=== PATIENT | female | born 1960 | race Two or more races ===

== ENCOUNTER → 2018-08-24 | Day surgery (SDC) | payer OTHER ==
[~2018-08-24] MED LIST: LIDOCAINE 1%/EPINEPHRINE INJ 20 ML VIAL ONE; LIDOCAINE 2% INJ (20 MG/ML) 20 ML MDV ONE
--- NOTE | 2018-08-28 14:12 | RADIOLOGY REPORT (SQ) ---
EXAM DESCRIPTION: STEREO BREAST BX; LEFT DIG DX MAMMO NO CHG COMPLETED DATE/TIME: 08/24/2018 1:12 pm; 08/24/2018 1:13 pm REASON FOR STUDY: ABN OR INCONCLUSIVE FINDINGS ON DX IMAGING OF BREAST (R92.8) R92.8 OTH ABN AND IN CONCLUSIVE FINDINGS ON DX IMAGING OF [place] COMPARISON: Mammograms from 2008 TECHNIQUE: Vacuum-assisted stereotactic-guided biopsy of the lesion in the left breast. Serial progr ess stereotactic and single digital images acquired. PROCEDURE: The procedure was discussed with the patient, including possible complications such as bleeding, infection, nondiagnostic sample or possible findings such as atypical ductal hyperplasia wh ich would require additional surgery. Possible clip placement was explained. The patient agreed t o the procedure. The patient was placed prone on the stereotactic table. The lesion in the breast was localized ster eotactically. The skin of the breast was prepped in sterile fashion. Superficial and deep local an esthesia was provided. A small incision was made in the skin and the biopsy probe was advanced to t he target. Using the vacuum-assisted core biopsy device, multiple core specimens were obtained. Continuous low dose infusion of local anesthesia was used during the procedure. A specimen radiograph was obtained. The radiograph demonstrated calcifications of concern in the bio psy tissue. Using luspruhe-[id number] technique a pellet clip was deployed at the biopsy site. Mammographic image confirmed presence of the clip. The probe was then removed and hemostasis obtained with manua l compression. A compression bandage was applied. Postoperative instructions were explained to th e patient. POST-PROCEDURE TWO VIEW DIGITAL MAMMOGRAM: An additional two view mammogram was recorded in the [facility] mammographic suite. Marker clip is present at the biopsy site. LIMITATIONS: None. 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 POST PROCEDURE MAMMOGRAMS FOR MARKER PLACEMENT: Yes IMPRESSION: SUCCESSFUL STEREOTACTIC-GUIDED BIOPSY OF THE LESION IN THE LEFT BREAST. BIOPSY RESULTS ARE CONCORDANT WITH IMAGING FINDINGS. BI-RADS 6, known malignancy. Appropriate action should be harsh en. FOLLOW-UP: APPROPRIATE FOLLOWUP FOR BIOPSY RESULTS OF MALIGNANCY.BI-RADS 6, known malignancy. Approp riate action should be taken. NOTIFICATION: These results were discussed with the patient, 1000 hours 08/25/2018. She understands t his is a malignant diagnosis and will require further follow-up. COMMENT: Patient medication list reviewed: Yes- Quality ID# [id number]:Eligible professional attests to doc umenting in the medical record they obtained, updated, or reviewed the patient's current medications. TECHNICAL DOCUMENTATION: JOB ID: [id number] [facility]- All Rights Reserved Reading location - IP/workstation name: [facility]
== END ==
LOC: RAD 08:36
PROVIDERS: ATTEND Family Medicine
DX: D05.12 Intraductal carcinoma in situ of left breast (principal)
CPT/HCPCS: 88305 ×2; 88342; 19081; J3490 ×2

== ENCOUNTER 2018-10-19 10:15 | Day surgery (SDC) | payer OTHER ==
[2018-10-16 10:18] LABS: ABSOLUTE BASOPHILS # (AUTO) 0.1 10^3/uL (0.0-0.2); ABSOLUTE EOSINOPHILS # (AUTO) 0.1 10^3/uL (0.0-0.6); ABSOLUTE LYMPHOCYTES (AUTO) 2.3 10^3/uL (0.5-4.7); ABSOLUTE MONOCYTES (AUTO) 0.4 10^3/uL (0.1-1.4); ABSOLUTE NEUT (AUTO) 3.4 10^3/uL (1.7-8.2); BASOPHILS % (AUTO) 0.8 % (0-2); EOSINOPHILS % (AUTO) 1.3 % (0-6); HEMATOCRIT 41.8 % (36.0-47.0); HEMOGLOBIN 13.6 g/dL (12.0-15.5); LYMPHOCYTES % (AUTO) 37.1 % (13-45); MEAN CORPUSCULAR HEMOGLOBIN 27.3 pg (27.0-33.4); MEAN CORPUSCULAR HGB CONC 32.6 g/dL (32.0-36.0); MEAN CORPUSCULAR VOLUME 84 fl (80-97); PLATELET COUNT 196 10^3/uL (150-450); RED CELL DISTRIBUTION WIDTH 14.5 % (11.5-14.0); SEGMENTED NEUTROPHILS % (AUTO) 54.8 % (42-78); TOTAL CELLS COUNTED % (AUTO) 100 %; WHITE BLOOD COUNT 6.2 10^3/uL (4.0-10.5)
[2018-10-16 10:39] LABS: ANION GAP 6 (5-19); BLOOD UREA NITROGEN 14 mg/dL (7-20); CALCIUM 9.3 mg/dL (8.4-10.2); CARBON DIOXIDE 29 mmol/L (22-30); CHLORIDE 107 mmol/L (98-107); GLUCOSE 113 mg/dL (75-110); POTASSIUM 4.6 mmol/L (3.6-5.0); SODIUM 142.4 mmol/L (137-145)
--- NOTE | 2018-10-16 16:36 | EKG REPORT ---
SEVERITY:- NORMAL ECG - SINUS RHYTHM : Confirmed by: Rosenda Morrow MD 16-Oct-2018 16:35:12
[~2018-10-19 10:15] MED LIST changes: +ACETAMINOPHEN 1,000 MG/100 ML RTUPB IV ONE; +BUPIVACAINE HCL 0.25% /EPINEPHRINE INJ/PF 30 ML SDV ONE; +CEFAZOLIN 1 GM/D5W RTU 1 GM/50 ML RTUPB IV PRN; +DEXAMETHASONE SOD PHOSPHATE INJ 4 MG/1 ML VIAL ONE; +FENTANYL CITRATE INJ/PF 100 MCG/2 ML AMPUL ONE; +HYDROMORPHONE HCL INJ/PF 2 MG/ML AMPULE ONE; +KETOROLAC TROMETHAMINE 60 MG/2 ML SDV ONE; +LACTATED RINGERS 1000 ML IV PRN; +LIDOCAINE 0.5% INJ-PF (5 MG/ML) 50 ML SDV SUBCUT PRN; +LIDOCAINE 1% INJ-PF (10 MG/ML) 30 ML SDV ONE; -LIDOCAINE 1%/EPINEPHRINE INJ 20 ML VIAL ONE; -LIDOCAINE 2% INJ (20 MG/ML) 20 ML MDV ONE; +MIDAZOLAM 2 MG/2 ML INJ ONE; +ONDANSETRON HCL INJ/PF 4 MG/2 ML SDV ONE; +PROPOFOL INJ 200 MG/20 ML VIAL IV ONE
[2018-10-19] MEDS ORDERED: CEFAZOLIN 1 GM/D5W RTU 1 GM/50 ML RTUPB IV ONE (11:48)
[2018-10-19] MEDS ORDERED: MIDAZOLAM 2 MG/2 ML INJ ONE (11:50)
[2018-10-19] MEDS ORDERED: DIPHENHYDRAMINE HCL 50 MG/ML VIAL IV PRN (12:48)
[2018-10-19] MEDS ORDERED: FENTANYL CITRATE INJ/PF 100 MCG/2 ML AMPUL IV PRN ×3 (12:48)
[2018-10-19] MEDS ORDERED: MORPHINE SULFATE 10 MG/ML INJ IV PRN (12:48)
[2018-10-19] MEDS ORDERED: PROMETHAZINE HCL INJ 25 MG/1 ML VIAL IV PRN (12:48)
[2018-10-19] MEDS ORDERED: MEPERIDINE HCL/PF INJ 25 MG/1 ML DISP.SYRIN IV PRN (12:48)
[2018-10-19] MEDS ORDERED: FENTANYL CITRATE INJ/PF 100 MCG/2 ML AMPUL ONE (13:54)
--- NOTE | 2018-10-19 14:23 | Discharge Summary ---
Discharge Summary (SDC) - Discharge Final Diagnosis: breast mass Date of Surgery: 10/19/18 Condition: Good Treatment or Instructions: leave shilo wrap on till tomorrow ok to remove dressing tuesday morning ok to shower on tuesday remove the outer gauze on tuesday and leave on the steristrips no physical activity for 2wks needs to f/u with me in 7-10 days. Prescriptions: Tramadol HCl [Ultram 50 mg Tablet] 50 mg PO ASDIR PRN #20 tablet PRN Reason: Referrals: ANGEL LARIOS MD [Primary Care Provider] - Discharge Diet: As Tolerated Respiratory Treatments at Home: Deep Breathing/Coughing Discharge Activity: Activity As Tolerated Home Care Assistance: None Needed Report the Following to Your Physician Immediately: Shortness of Breath, Swelling, Warmth, Increased Soreness
--- NOTE | 2018-10-19 14:49 | Operative Report ---
Operative Report DATE OF SURGERY: 10/19/18 Operative Report: Patient brought to the operating room in awake alert stable condition on the operating table supine position and induced under general anesthesia and intubated Breast was prepped and draped in usual sterile manner for the procedure she had a previous wire localization within the left breast. Curved incision was made in the left upper outer quadrant dissection carried down through subcutaneous tissue with Bovie cautery the breast tissue was encountered and incision was made in the breast tissue of the left upper outer quadrant mass itself was grasped with a Allis clamp and traction circumferentially came around the breast tissue with Bovie cautery and center of the breast mass the tip of the wire was located. The mass was excised x-rayed and confirmed the appropriate specimen. Wound was irrigated with normal saline hemostasis was obtained with Bovie cautery and was then reapproximated with intracuticular 4-0 Rapide suture sterile dressing was applied which completed the procedure. The patient was then awakened in the operating room extubated transferred recovery in stable condition Estimated blood loss approximately 25 cc Sponge and needle counts were correct x2 Specimen removed was left breast biopsy specimen PREOPERATIVE DIAGNOSIS: left breast mass POSTOPERATIVE DIAGNOSIS: left breast mass OPERATION: needle localization biopsy left breast SURGEON: KHADAR FOWLER 1ST COMPOSITE SCIENCE TEACHER: blade ANESTHESIA: GA TISSUE REMOVED OR ALTERED: left breast mass COMPLICATIONS: none ESTIMATED BLOOD LOSS: 25cc
[2018-10-19] MEDS ORDERED: TRAMADOL HCL 50 MG TABLET ONE (15:00)
[2018-10-19 18:31] VITALS: BP 145/100
--- NOTE | 2018-10-23 13:58 | WOMENS IMAGING REPORT ---
EXAM DESCRIPTION: WIRE LOC MAMMO; LEFT DIAGNOSTIC MAMMO W/CAD; BREAST SPECIMEN COMPLETED DATE/TIME: 10/19/2018 11:32 am; 10/19/2018 2:00 pm REASON FOR STUDY: C50.912 MALIGNANT NEOPLASM OF UNSPECIFIED SITE OF LEFT FEMALE BREAST; PRE NEEDLE L OCALIZATION PER DR MONGE; LEFT BREAST SPECIMEN IN OR C50.912 MALIGNANT NEOPLASM OF UNSPECIFIED SI TE OF LEFT FEMAL COMPARISON: Stereotactic biopsy 08/24/2018 TECHNIQUE: Prior to the needle and localization, two-view mammogram was obtained to document clip lo calization and extent of residual calcification in the left breast at the biopsy site. Few punctate calcifications immediately adjacent to the stereotactic marker are noted on these pre-procedure films . The stereotactic biopsy clip in the 2 o'clock position left breast was localized mammographically us ing a grid marker. The skin of the breast was prepped in sterile fashion and local anesthesia was pr ovided. The localization needle was advanced to the target. The tip was positioned adjacent to the target and confirmed with two orthogonal views. Surgical dye was not injected for this procedure. Th e wire was placed through the needle and the hook engaged. Post procedure mammogram demonstrates sati sfactory position of the needle and wire. Specimen radiograph demonstrates the intact localization wire as well as the targeted lesion within t he biopsy specimen. LIMITATIONS: None. FINDINGS: Procedure as above. Pathology: Pending. IMPRESSION: SUCCESSFUL NEEDLE LOCALIZATION OF THE LESION IN THE LEFT BREAST. FOLLOW-UP PER THE P YAHIR'S SURGEON. TECHNICAL DOCUMENTATION: JOB ID: [id number] [employer]- All Rights Reserved Reading location - IP/workstation name: [facility]-RR
--- NOTE | 2018-10-23 13:58 | WOMENS IMAGING REPORT ---
EXAM DESCRIPTION: WIRE LOC MAMMO; LEFT DIAGNOSTIC MAMMO W/CAD; BREAST SPECIMEN COMPLETED DATE/TIME: 10/19/2018 11:32 am; 10/19/2018 2:00 pm REASON FOR STUDY: C50.912 MALIGNANT NEOPLASM OF UNSPECIFIED SITE OF LEFT FEMALE BREAST; PRE NEEDLE L OCALIZATION PER DR MONGE; LEFT BREAST SPECIMEN IN OR C50.912 MALIGNANT NEOPLASM OF UNSPECIFIED SI TE OF LEFT FEMAL COMPARISON: Stereotactic biopsy 08/24/2018 TECHNIQUE: Prior to the needle and localization, two-view mammogram was obtained to document clip lo calization and extent of residual calcification in the left breast at the biopsy site. Few punctate calcifications immediately adjacent to the stereotactic marker are noted on these pre-procedure films . The stereotactic biopsy clip in the 2 o'clock position left breast was localized mammographically us ing a grid marker. The skin of the breast was prepped in sterile fashion and local anesthesia was pr ovided. The localization needle was advanced to the target. The tip was positioned adjacent to the target and confirmed with two orthogonal views. Surgical dye was not injected for this procedure. Th e wire was placed through the needle and the hook engaged. Post procedure mammogram demonstrates sati sfactory position of the needle and wire. Specimen radiograph demonstrates the intact localization wire as well as the targeted lesion within t he biopsy specimen. LIMITATIONS: None. FINDINGS: Procedure as above. Pathology: Pending. IMPRESSION: SUCCESSFUL NEEDLE LOCALIZATION OF THE LESION IN THE LEFT BREAST. FOLLOW-UP PER THE P YAHIR'S SURGEON. TECHNICAL DOCUMENTATION: JOB ID: [id number] [employer]- All Rights Reserved Reading location - IP/workstation name: [email or web address]
== END 2018-10-19 16:00 | disposition home or self-care (01) ==
LOC: OROUT 10:15
PROVIDERS: ATTEND Surgery
DX: D05.12 Intraductal carcinoma in situ of left breast (principal); I10 Essential (primary) hypertension; F32.9 Major depressive disorder, single episode, unspecified; G47.00 Insomnia, unspecified; F43.10 Post-traumatic stress disorder, unspecified; Z79.899 Other long term (current) drug therapy
CPT/HCPCS: 93010; 93005; 36415; 85025; 80048; 88307 ×2; 19281; 77065; 76098; 19301; J2250; J3490 ×2; J0690; J1100; J1885; J3010; J2405; J2704; J0131; 400; J1170

== ENCOUNTER 2018-11-03 09:40 | Emergency (ER) | payer OTHER ==
--- NOTE | 2018-11-03 10:15 | RADIOLOGY REPORT (SQ) ---
EXAM DESCRIPTION: CHEST 2 VIEWS COMPLETED DATE/TIME: 11/03/2018 10:03 am REASON FOR STUDY: short of breath COMPARISON: None. EXAM PARAMETERS: NUMBER OF VIEWS: two views TECHNIQUE: Digital Frontal and Lateral radiographic views of the chest acquired. RADIATION DOSE: NA LIMITATIONS: none FINDINGS: LUNGS AND PLEURA: No opacities, masses or pneumothorax. No pleural effusion. MEDIASTINUM AND HILAR STRUCTURES: No masses or contour abnormalities. HEART AND VASCULAR STRUCTURES: Heart normal size. No evidence for failure. BONES: No acute findings. HARDWARE: None in the chest. OTHER: No other significant finding. IMPRESSION: NO ACUTE RADIOGRAPHIC FINDING IN THE CHEST. TECHNICAL DOCUMENTATION: JOB ID: [id number] [employer]- All Rights Reserved Reading location - IP/workstation name: [email or web address]
[2018-11-03 11:10] LABS: ABSOLUTE BASOPHILS # (AUTO) 0.1 10^3/uL (0.0-0.2); ABSOLUTE EOSINOPHILS # (AUTO) 0.1 10^3/uL (0.0-0.6); ABSOLUTE LYMPHOCYTES (AUTO) 2.4 10^3/uL (0.5-4.7); ABSOLUTE MONOCYTES (AUTO) 0.5 10^3/uL (0.1-1.4); ABSOLUTE NEUT (AUTO) 5.6 10^3/uL (1.7-8.2); BASOPHILS % (AUTO) 1.4 % (0-2); EOSINOPHILS % (AUTO) 0.7 % (0-6); HEMATOCRIT 38.1 % (36.0-47.0); HEMOGLOBIN 12.6 g/dL (12.0-15.5); LYMPHOCYTES % (AUTO) 27.8 % (13-45); MEAN CORPUSCULAR HEMOGLOBIN 27.4 pg (27.0-33.4); MEAN CORPUSCULAR HGB CONC 33.1 g/dL (32.0-36.0); MEAN CORPUSCULAR VOLUME 83 fl (80-97); MONOCYTES % (AUTO) 5.8 % (3-13); PLATELET COUNT 259 10^3/uL (150-450); RED CELL DISTRIBUTION WIDTH 14.6 % (11.5-14.0); SEGMENTED NEUTROPHILS % (AUTO) 64.3 % (42-78); TOTAL CELLS COUNTED % (AUTO) 100 %; WHITE BLOOD COUNT 8.6 10^3/uL (4.0-10.5)
--- NOTE | 2018-11-03 11:11 | RADIOLOGY REPORT (SQ) ---
EXAM DESCRIPTION: SOFT TISSUE NECK COMPLETED DATE/TIME: 11/03/2018 10:53 am REASON FOR STUDY: Sore throat and painful swallowing COMPARISON: None. NUMBER OF VIEWS: Two views. TECHNIQUE: AP and lateral radiographic image of the soft tissues of the neck. LIMITATIONS: None. FINDINGS: EPIGLOTTIS: Normal. Contour normal. Aryepiglottic folds normal. PREVERTEBRAL SOFT TISSUES: Normal. No soft tissue swelling. SUBGLOTTIC AREA: Normal. No narrowing. RETROPHARYNGEAL SPACE: Normal. No soft tissue masses. BONES: Mild anterior osteophyte formation throughout the cervical spine LUNG APICES: Normal. OTHER: No radiopaque foreign body. No other significant finding. IMPRESSION: NEGATIVE STUDY OF THE SOFT TISSUES OF THE NECK. TECHNICAL DOCUMENTATION: JOB ID: [id number] [employer]- All Rights Reserved Reading location - IP/workstation name: [email or web address]
[2018-11-03 11:26] LABS: A TYPE INFLUENZA AG NEGATIVE (NEGATIVE); B INFLUENZA AG NEGATIVE (NEGATIVE)
[2018-11-03 11:27] LABS: ALANINE AMINOTRANSFERASE 23 U/L (9-52); ALBUMIN 4.5 g/dL (3.5-5.0); ALKALINE PHOSPHATASE 78 U/L (38-126); ANION GAP 8 (5-19); ASPARTATE AMINO TRANSFERASE 22 U/L (14-36); BILIRUBIN,DIRECT 0.3 mg/dL (0.0-0.4); BILIRUBIN,TOTAL 0.5 mg/dL (0.2-1.3); BLOOD UREA NITROGEN 7 mg/dL (7-20); CALCIUM 9.6 mg/dL (8.4-10.2); CARBON DIOXIDE 27 mmol/L (22-30); CHLORIDE 106 mmol/L (98-107); GLUCOSE 122 mg/dL (75-110); LIPASE 23.1 U/L (23-300); SODIUM 141.1 mmol/L (137-145); TOTAL PROTEIN 7.8 g/dL (6.3-8.2)
--- NOTE | 2018-11-03 13:56 | ER Document Report ---
ED General - General Chief Complaint: Respiratory Distress Stated Complaint: FLU SYMPTOMS Time Seen by Provider: 11/03/18 10:17 Notes: Patient says that she has been sick with a sore throat for the past 4-5 days. She was seen earlier in the week at the ID and then again yesterday at the [facility] clinic. She was advised to follow-up here because of continuing symptoms of sore throat. She says it is so painful she can hardly swallow. Does not have any problem with breathing. No hoarse voice. Patient has previously been prescribed Diflucan for yeast infection both in the pelvic region and in her throat. Patient states she has had some cough and congestion last night. Also some difficulty breathing. Not sure if she has had a fever but has felt hot and cold. Did not get the flu vaccination this year. Patient incidentally comments about a rash she has had on the mid right lower leg that has been present for 3-4 months. She is been given antibiotics as well as some creams for it as well as Lamisil. She says none of those have worked and she is supposed to being referred to a fixing machine operator. TRAVEL OUTSIDE OF THE [place] IN LAST 30 DAYS: No - Related Data Allergies/Adverse Reactions: No Known Allergies Allergy (Verified 11/03/18 09:44) Past Medical History - Social History Smoking Status: Unknown if Ever Smoked Family History: Reviewed & Not Pertinent Patient has suicidal ideation: No Patient has homicidal ideation: No - Past Medical History Cardiac Medical History: Reports: Hx Hypertension - ON MEDICATION Neurological Medical History: Denies: Hx Cerebrovascular Accident, Hx Seizures Endocrine Medical History: Reports: Hx Diabetes Mellitus Type 2 Past Surgical History: Reports: Hx Hysterectomy - Immunizations Hx Diphtheria, Pertussis, Tetanus Vaccination: Yes Hx Pneumococcal Vaccination: 01/15/11 Review of Systems - Review of Systems Notes: REVIEW OF SYSTEMS: CONSTITUTIONAL : Denies fever, but has felt hot and cold over the past 24 hours.. EENT: Denies eye, ear, nose or mouth or throat pain or other symptoms. CARDIOVASCULAR: Denies chest pain. RESPIRATORY: Denies cough, chest congestion, or shortness of breath. GASTROINTESTINAL: Denies abdominal pain or nausea, vomiting, or diarrhea. GENITOURINARY: Denies difficulty or painful urinating, urinary frequency, blood in urine. MUSCULOSKELETAL: Denies back or neck pain. Denies joint pain or swelling. SKIN: Denies rash or skin lesions. NEUROLOGICAL: Denies LOC or altered mental status. Denies headache. Denies sensory loss or motor deficits. ALL OTHER SYSTEMS REVIEWED AND NEGATIVE. Physical Exam - Vital signs Vitals: Temp Pulse Resp BP Pulse Ox 98.5 F 99 16 146/89 H 99 11/03/18 09:50 11/03/18 09:50 11/03/18 09:50 11/03/18 09:50 11/03/18 09:50 Interpretation: Normal Notes: PHYSICAL EXAMINATION: GENERAL: Well-appearing, in no acute distress. Anxious and very vocal. No hoarseness of her voice. No apparent difficulty swallowing. HEAD: Atraumatic, normocephalic. EYES: Pupils equal round and reactive to light, extraocular movements intact. ENT: oropharynx clear without exudates. Moist mucous membranes. I got a good look at the entire posterior oropharynx and there is only very mild erythema. No exudates present. No soft tissue swelling. No airway impingement or obstruction. No hoarseness of voice. Does not look to be in any discomfort swallowing her saliva. NECK: Normal range of motion, supple. LUNGS: Breath sounds clear and equal bilaterally. HEART: Regular rate and rhythm without murmurs. ABDOMEN: Soft, nontender. No guarding or rebound. No masses. BACK: No tenderness throughout entire back. EXTREMITIES: Normal range of motion without pain. NEUROLOGICAL: Normal speech, normal gait. Normal sensory, motor, and reflex exams. Awake, alert, and oriented x3. Cranial nerves normal. PSYCH: Normal mood, normal affect. SKIN: Warm, dry, no rashes. Lesion on the right lower leg, midportion, slightly to the right that is about 3 cm in diameter and looks like a possible vascular lesion with some erythema around the periphery. I am not certain what the underlying source or cause of the lesion is, but recommended the patient get her an appointment to see a fixing machine operator as soon as possible for further evaluation and care. Course - Vital Signs Vital signs: Temp Pulse Resp BP Pulse Ox 98.6 F 86 15 135/88 H 100 11/03/18 14:26 11/03/18 14:26 11/03/18 14:26 11/03/18 14:26 11/03/18 14:26 - Laboratory Result Diagrams: 11/03/18 10:55 11/03/18 10:55 Laboratory results interpreted by me: 11/03/18 11/03/18 10:55 10:55 RDW 14.6 H Est GFR (Non-Af Amer) 59 L Glucose 122 H Discharge - Discharge Clinical Impression: Sore throat (viral) Condition: Stable Disposition: HOME, SELF-CARE Additional Instructions: SORE THROAT: Sore throats may be caused by viruses, bacteria, or fungi. Most are due to a virus, and must get better on their own. Bacterial sore throats, particularly those due to "strep," need treatment with antibiotics. If an antibiotic is prescribed, be sure to take the medication for a full 10 days. Failure to take the antibiotic can result in complications such as rheumatic fever. Sometimes, an injection of antibiotics is given instead of pills or liquid. This single "shot" is equal in effectiveness to the oral medication. To relieve symptoms, take acetaminophen for pain. Sip clear liquids frequently, or eat popsicles or ice chips. Anesthetic sprays or lozenges may help. Make sure the air in the room is not too dry. Avoid using decongestants or antihistamines. Call the doctor if there is no improvement in two days, or if you have difficulty breathing, increasing throat pain, high fever, rash, or frequent vo miting. Your test for strep throat was negative. NORMAL EXAM AND WORKUP: At this time, your examination and workup show no significant abnormality. No significant abnormal physical findings were noted. All laboratory, EKG, and imaging (x-ray, CT scans, ultrasound) studies that were ordered show no significant abnormality. Although your examination and all studies that were ordered showed no significant abnormal finding, there are no examinations and no studies that are 100% accurate. There is always the possibility that some abnormality could exist and not be detected with physical examination or within the limits and capabilities of laboratory and other studies. You should return or follow up as you were instructed on your visit today for further evaluation if your symptoms do not resolve. ORAL NARCOTIC MEDICATION: You have been given a prescription for pain control. This medication is a narcotic. It's best taken with food, as nausea can result if taken on an empty stomach. Don't operate machinery or drive within six hours of taking this medication. Do not combine this medicine with alcohol, or with any medication which can cause sedation (such as cold tablets or sleeping pills) unless you get permission from the physician. Narcotics tend to cause constipation. If possible, drink plenty of fluids and eat a diet high in fiber and fruits. Continue with your current treatment. Follow-up with your primary care next week if not doing any better. At any time, if your breathing becomes difficult and you cannot swallow or your breathing is very difficult, return immediately for us to reevaluate your condition. FOLLOW-UP CARE: If you have been referred to a physician for follow-up care, call the physicians office for an appointment as you were instructed or within the next two days. If you experience worsening or a significant change in your symptoms, notify the physician immediately or return to the Emergency Department at any time for re-evaluation. Prescriptions: Oxycodone HCl/Acetaminophen [Percocet 5-325 mg Tablet] 1 tab PO Q4HP PRN #10 tablet PRN Reason:
[2018-11-03 14:28] VITALS: BP 135/88
== END 2018-11-03 14:28 | disposition home or self-care (01) ==
LOC: ER 09:40
DX: J02.8 Acute pharyngitis due to other specified organisms (principal); B97.89 Other viral agents as the cause of diseases classified elsewhere; R06.03 Acute respiratory distress; L98.9 Disorder of the skin and subcutaneous tissue, unspecified; E11.9 Type 2 diabetes mellitus without complications; I10 Essential (primary) hypertension
CPT/HCPCS: 36415; 70360; 71046; 80053; 83690; 85025; 87070; 87804; 87880; 99283